=== PATIENT | male | born 1945 | race Caucasian/White ===

== ENCOUNTER 2017-07-11 15:11 | Emergency (ER) | payer MEDICARE ==
[2017-07-11] MEDS ORDERED: NS 0.9% 1000 ML* 1,000 ML IV ONE (15:49)
[2017-07-11] MEDS ORDERED: Meclizine TAB* 12.5 MG PO ONE (15:57)
[2017-07-11 16:17] LABS: ABS Basophils 0.1 10^3/ul (0-0.2); ABS Eosinophils 0.1 10^3/ul (0-0.6); ABS Lymphocytes 1.3 10^3/ul (1.0-4.8); ABS Monocytes 0.8 10^3/ul (0-0.8); ABS Neutrophils 5.4 10^3/ul (1.5-7.7); ABS Nucleated RBC 0.01 10^3/ul; Eosinophil % 1.2 % (0-6); Hematocrit 40 % (42-52); Hemoglobin 13.8 g/dl (14.0-18.0); Mean Corpuscular HGB Conc 34 g/dl (31-36); Mean Corpuscular Hemoglobin 29 pg (27-31); Mean Corpuscular Volume 84 fL (80-94); Mean Platelet Volume 9 um3 (7.4-10.4); Nucleated Red Blood Cells % 0.1; Platelet Count 245 10^3/ul (150-450); Red Blood Count 4.79 10^6/ul (4.0-5.4); Red Cell Distribution Width 15 % (10.5-15); White Blood Count 7.7 10^3/ul (3.5-10.8)
--- NOTE | 2017-07-11 16:28 | RAD ---
INDICATION: Dizziness. COMPARISON: Comparison is made with a prior chest x-ray study from December 18, 2011. TECHNIQUE: AP and lateral views of the chest were obtained. FINDINGS: The heart is within normal limits in size. Mediastinal and hilar contours appear within normal limits. The lungs are underinflated. There is a small infiltrate at the right lung base suggestive of atelectasis. No pleural effusion is seen. IMPRESSION: LOW LUNG VOLUMES, SMALL RIGHT BASILAR INFILTRATE SUGGESTIVE OF ATELECTASIS.
--- NOTE | 2017-07-11 16:36 | RAD ---
INDICATION: Dizziness. COMPARISON: There are no prior studies available for comparison. TECHNIQUE: Contiguous axial sections of the brain were obtained from the skull base to the vertex without contrast. FINDINGS: The ventricles, cisterns and sulci are enlarged consistent with diffuse atrophy. No significant focal abnormality or mass effect is seen. There is no evidence for hemorrhage. There is mild mucosal thickening within the right maxillary sinus. The visualized portion of the paranasal sinuses and mastoid air cells otherwise appear clear. IMPRESSION: NO EVIDENCE FOR GROSS ACUTE INFARCT, MASS EFFECT OR HEMORRHAGE.
[2017-07-11 16:50] LABS: EGFR Non-African American 64.1 (>60)
[2017-07-11 18:25] VITALS: BP 147/73
--- NOTE | 2017-07-16 18:38 | ED ---
Apoorva Echols Alfonso, scribed for Preet Moon MD on 07/11/17 at 1555 . Dizziness - HPI Summary HPI Summary: This patient is a 72 year old M BIBA to [facility] accompanied by family with a chief complaint of intermittent room-spinning dizziness since earlier today. The patient rates the pain 0/10 in severity. Symptoms aggravated and alleviated by nothing. Patient reports insomnia, tiredness (3-4 months), weakness, nausea, constipation (chronic), and neck pain (chronic). Patient denies CP, palpitations , SOB, vomiting, diarrhea, blurred vision, headache, rhinorrhea, sore throat, and ear ache. - History Of Current Complaint Chief Complaint: EDGeneral Stated Complaint: DIZZINESS,NAUSEA Time Seen by Provider: 07/11/17 15:33 Hx Obtained From: Patient Onset/Duration: Still Present Timing: Intermittent Episode Lasting Character: Room Spinning Aggravating Factor(s): Nothing Alleviating Factor(s): Nothing Associated Signs And Symptoms: Positive: Other: - insomnia, tiredness (3-4 months), weakness, nausea, constipation (chronic), and neck pain (chronic). Patient denies CP, palpitations, SOB, vomiting, diarrhea, blurred vision, headache, rhinorrhea, sore throat, and ear ache. - Allergies/Home Medications Allergies/Adverse Reactions: Allergies Allergy/AdvReac Type Severity Reaction Status Date / Time Aspirin Allergy ACTIVATES Verified 06/04/16 14:42 ACID REFLUX PMH/Surg Hx/FS Hx/Imm Hx GI History: Reports: Hx Gastroesophageal Reflux Disease - CONTROL WITH MEDS Sensory History: Reports: Hx Cataracts - BILATERAL, Hx Contacts or Glasses - GLASSES Denies: Hx Hearing Aid Opthamlomology History: Reports: Hx Cataracts - BILATERAL, Hx Contacts or Glasses - GLASSES EENT History: Denies: Hx Deafness Psychiatric History: Reports: Hx Anxiety - CONTROL WITH MEDS - Surgical History Surgery Procedure, Year, and Place: AGE 2 or 3 RIGHT EYE SURGERY FOR CROSS-EYED, . S OR LEFT SALIVA GLAND REMOVED, [facility] 02/2008 LEFT CATARACT EXTRACTION WITH IOL IMPLANT, [facility] [place] 04/2008 LAPAROSCOPIC CHOLECYSTECTOMY, [facility] [place]. 2008 ERCP / ANESTHESIA, [facility] [place]. 2009 ERCP, [facility] [place] Hx Anesthesia Reactions: No Infectious Disease History: No Infectious Disease History: Denies: Traveled Outside the [place] in Last 30 Days - Family History Known Family History: Positive: Cardiac Disease - [place], Other - Lung cancer - Social History Alcohol Use: Rare Alcohol Amount: 2 X A YEAR Hx Substance Use: No Substance Use Type: Reports: None Hx Tobacco Use: Yes Smoking Status (MU): Former Smoker Review of Systems Negative: Fever Negative: Blurred Vision Negative: Sore Throat, Ear Ache, Nasal Discharge Negative: Palpitations, Chest Pain Negative: Shortness Of Breath Positive: Nausea, Other - constipation. Negative: Vomiting, Diarrhea Positive: Other - neck pain (chronic) Neurological: Other - Dizziness, insomnia, tiredness (3-4 months), weakness Negative: Headache All Other Systems Reviewed And Are Negative: Yes Physical Exam - Summary Physical Exam Summary: VITAL SIGNS: Reviewed. GENERAL: Patient is a well-developed and nourished male who is lying comfortable in the stretcher. Patient is not in any acute respiratory distress. HEAD AND FACE: No signs of trauma. No ecchymosis, hematomas or skull depressions. No sinus tenderness. EYES: PERRLA, EOMI x 2, No injected conjunctiva, no nystagmus. EARS: Hearing grossly intact. Ear canals and tympanic membranes are within normal limits. MOUTH: Oropharynx within normal limits. Dry oral mucosa. NECK: Supple, trachea is midline, no adenopathy, no JVD, no carotid bruit, no c- spine tenderness, neck with full ROM. CHEST: Symmetric, no tenderness at palpation LUNGS: Clear to auscultation bilaterally. No wheezing or crackles. CVS: Regular rate and rhythm, S1 and S2 present, no murmurs or gallops appreciated. ABDOMEN: Soft, non-tender. No signs of distention. No rebound no guarding, and no masses palpated. Bowel sounds are normal. EXTREMITIES: FROM in all major joints, no edema, no cyanosis or clubbing. NEURO: Alert and oriented x 3. No acute neurological deficits. Speech is normal and follows commands. SKIN: Dry and warm Triage Information Reviewed: Yes Vital Signs On Initial Exam: Initial Vitals Temp Pulse Resp BP Pulse Ox 97.4 F 55 22 119/73 100 07/11/17 15:29 07/11/17 15:29 07/11/17 15:29 07/11/17 15:29 07/11/17 15:29 Vital Signs Reviewed: Yes - Melissa Coma Scale Best Eye Response: 4 - Spontaneous Best Motor Response: 6 - Obeys Commands Best Verbal Response: 5 - Oriented Coma Scale Total: 15 Diagnostics - Vital Signs Vital Signs Temp Pulse Resp BP Pulse Ox 07/11/17 15:30 15 119/73 07/11/17 15:29 97.4 F 55 21 119/73 100 - Laboratory Result Diagrams: 07/11/17 16:03 07/11/17 16:03 Lab Statement: Any lab studies that have been ordered have been reviewed, and results considered in the medical decision making process. - Radiology CXR Radiology Interpretation Completed By: Radiologist - LOW LUNG VOLUMES, SMALL RIGHT BASILAR INFILTRATE. ED physician has reviewed this radiology report and agrees. - CT Brain CT Interpretation Completed By: Radiologist - NO EVIDENCE FOR GROSS ACUTE INFARCT, MASS EFFECT OR HEMORRHAGE. ED physician has reviewed this radiology report and agrees. - EKG 1558 Cardiac Rate: Bradycardia EKG Rhythm: Sinus Bradycardia - 54 BPM EKG Interpretation: RBBB EKG Comparison: No Significant Change - 12/18/11 Re-Evaluation - Re-Evaluation First Eval Re-Evaluation Time: 17:55 Change: Improved Comment: Patient ambulated in the ED well and without any dizziness. The patient reports feeling much better. Dizzy Course/Dx - Course Assessment/Plan: This patient is a 72 year old M BIBA to [facility] accompanied by family with a chief complaint of intermittent room-spinning dizziness since earlier today. The patient rates the pain 0/10 in severity. Symptoms aggravated and alleviated by nothing. Patient reports insomnia, tiredness (3-4 months), weakness, nausea, constipation (chronic), and neck pain (chronic). Patient denies CP, palpitations, SOB, vomiting, diarrhea, blurred vision, headache, rhinorrhea, sore throat, and ear ache. An EKG reveals Sinus Bradycardia at 54 BPM and RBBB. CXR reveals, per radiologist, LOW LUNG VOLUMES, SMALL RIGHT BASILAR INFILTRATE. ED physician has reviewed this radiology report and agrees. CT Brain reveals, per radiologist, NO EVIDENCE FOR GROSS ACUTE INFARCT, MASS EFFECT OR HEMORRHAGE. ED physician has reviewed this radiology report and agrees. Test results with no significant abnormalities. In the ED course the patient was given IV fluids, Antivert for the dizziness, and the patient feels better. The patient ambulated with a good stead walk without any aid. Therefore , I believe the patient has vertigo. Patient will be discharged with prescription for Antivert and follow up from PCP. The patient is agreeable with this plan. The patient is hemodynamically stable, alert and oriented x3. - Diagnoses Provider Diagnoses: Dizziness Discharge - Discharge Plan Condition: Stable Disposition: HOME Prescriptions: Meclizine TAB* [Antivert 12.5 TAB*] 25 mg PO TID PRN #30 tab PRN Reason: Vertigo Patient Education Materials: Dizziness (ED) Referrals: Manuel Vee MD [Primary Care Provider] - 3 Days Additional Instructions: RETURN TO THE EMERGENCY DEPARTMENT FOR CHANGING OR WORSENING SYMPTOMS. The documentation as recorded by the Apoorva pinedo Alfonso accurately reflects the service I personally performed and the decisions made by me, Preet Moon MD.
== END 2017-07-11 18:23 | disposition home or self-care (01) ==
LOC: ED 15:11
DX: R42 Dizziness and giddiness (principal); I45.10 Unspecified right bundle-branch block; Z87.891 Personal history of nicotine dependence; F41.9 Anxiety disorder, unspecified; K21.9 Gastro-esophageal reflux disease without esophagitis; R00.1 Bradycardia, unspecified; R91.8 Other nonspecific abnormal finding of lung field
CPT/HCPCS: 36415; 70450; 71020; 80053; 80320; 82550; 83735; 83880; 84443; 84484; 85025; 86140; 93005; 96360; 99283; A9270-GY; G0480

== ENCOUNTER 2018-06-04 21:33 | Emergency (ER) | payer MEDICARE ==
[2018-06-04 22:15] LABS: ABS Basophils 0.1 10^3/ul (0-0.2); ABS Eosinophils 0.2 10^3/ul (0-0.6); ABS Monocytes 0.7 10^3/ul (0-0.8); ABS Neutrophils 4.3 10^3/ul (1.5-7.7); ABS Nucleated RBC 0 10^3/ul; Hematocrit 43 % (42-52); Hemoglobin 14.9 g/dl (14.0-18.0); Lymphocyte % 27.3 % (25-47); Mean Corpuscular HGB Conc 35 g/dl (31-36); Mean Corpuscular Hemoglobin 30 pg (27-31); Mean Corpuscular Volume 85 fL (80-94); Mean Platelet Volume 8.5 um3 (7.4-10.4); Nucleated Red Blood Cells % 0.4; Platelet Count 295 10^3/ul (150-450); Red Blood Count 5.01 10^6/ul (4.00-5.40); Red Cell Distribution Width 15 % (10.5-15); White Blood Count 7.3 10^3/ul (3.5-10.8)
--- NOTE | 2018-06-04 22:18 | ED ---
Upper Extremity Pain - HPI Summary HPI Summary: 73-year-old male presents with a pulsatile mass to right antecubital region. He states that the area has been expanding over the past 24 hours. he tried some eczema cream on it. He states that does not cause him any pain. He noticed some redness of area. No chest pain or shortness breath. Denies any medical history. No numbness or tingling. No weakness. He states he'll still able to grab things. Is right-handed. - History of Current Complaint Chief Complaint: EDExtremityUpper Stated Complaint: RT INSIDE ELBOW INJURY Time Seen by Provider: 06/04/18 21:51 - Allergies/Home Medications Allergies/Adverse Reactions: Allergies Allergy/AdvReac Type Severity Reaction Status Date / Time aspirin Allergy Unknown Verified 06/04/18 22:15 Reaction Details PMH/Surg Hx/FS Hx/Imm Hx Endocrine/Hematology History: Denies: Hx Anticoagulant Therapy, Hx Diabetes Cardiovascular History: Denies: Hx Myocardial Infarction GI History: Reports: Hx Gastroesophageal Reflux Disease - CONTROL WITH MEDS Sensory History: Reports: Hx Cataracts - BILATERAL, Hx Contacts or Glasses - GLASSES Denies: Hx Deafness, Hx Hearing Aid Opthamlomology History: Reports: Hx Cataracts - BILATERAL, Hx Contacts or Glasses - GLASSES Psychiatric History: Reports: Hx Anxiety - CONTROL WITH MEDS - Surgical History Surgery Procedure, Year, and Place: AGE 2 or 3 RIGHT EYE SURGERY FOR CROSS-EYED, . S OR LEFT SALIVA GLAND REMOVED, [facility]. 02/2008 LEFT CATARACT [place]TRA[place] [facility] [place] LAPAROSCOPIC [place] [facility] [place] [facility] [place] [facility] [place]x Anesthesia Reactions: No Infectious Disease History: No Infectious Disease History: Denies: Traveled Outside the [place] in Last 30 Days - Family History Known Family History: Positive: Cardiac Disease - [place], Other - Lung cancer - Social History Alcohol Use: Rare Alcohol Amount: 2 X A YEAR Hx Substance Use: No Substance Use Type: Reports: None Hx Tobacco Use: Yes Smoking Status (MU): Former Smoker Review of Systems Negative: Fever Negative: Chest Pain Negative: Shortness Of Breath Positive: Other - mass in right arm All Other Systems Reviewed And Are Negative: Yes Physical Exam Triage Information Reviewed: Yes Vital Signs On Initial Exam: Initial Vitals Temp Pulse Resp BP Pulse Ox 98.5 F 59 18 185/79 98 10/20/18 21:37 06/04/18 21:37 06/04/18 21:37 06/04/18 21:37 06/04/18 21:37 Vital Signs Reviewed: Yes Appearance: Positive: Well-Appearing Skin: Positive: Warm, Dry Head/Face: Positive: Normal Head/Face Inspection Eyes: Positive: Normal, Conjunctiva Clear ENT: Positive: Pharynx normal Respiratory/Lung Sounds: Positive: Clear to Auscultation, Breath Sounds Present Cardiovascular: Positive: Normal, RRR Musculoskeletal: Positive: Other - pulsatile mass to right arm, good pulses, good software implementation project manager strength, capillary refill<2secs Neurological: Positive: Normal Psychiatric: Positive: Normal Diagnostics - Vital Signs Vital Signs Temp Pulse Resp BP Pulse Ox 06/04/18 21:37 98.5 F 59 18 98 - Laboratory Lab Results: Lab Results 06/04/18 Range/Units 22:01 WBC 7.3 (3.5-10.8) 10^3/ul RBC 5.01 (4.00-5.40) 10^6/ul Hgb 14.9 (14.0-18.0) g/dl Hct 43 (42-52) % MCV 85 (80-94) fL MCH 30 (27-31) pg MCHC 35 (31-36) g/dl RDW 15 (10.5-15) % Plt Count 295 (150-450) 10^3/ul MPV 8.5 (7.4-10.4) um3 Neut % (Auto) 58.9 (38-83) % Lymph % (Auto) 27.3 (25-47) % Will % (Auto) 9.5 H (0-7) % Eos % (Auto) 3.0 (0-6) % Baso % (Auto) 1.3 (0-2) % Absolute Neuts (auto) 4.3 (1.5-7.7) 10^3/ul Absolute Lymphs (auto) 2.0 (1.0-4.8) 10^3/ul Absolute Monos (auto) 0.7 (0-0.8) 10^3/ul Absolute Eos (auto) 0.2 (0-0.6) 10^3/ul Absolute Basos (auto) 0.1 (0-0.2) 10^3/ul Absolute Nucleated RBC 0 10^3/ul Nucleated RBC % 0.4 Result Diagrams: 06/04/18 22:01 06/04/18 22:01 Lab Statement: Any lab studies that have been ordered have been reviewed, and results considered in the medical decision making process. - Ultrasound No standard instances Ultrasound Interpretation: No Acute Changes Ultrasound Interpretation Completed By: Radiologist Course/Dx - Course Course Of Treatment: 73-year-old male presents with a pulsatile mass to right antecubital region. He states that the area has been expanding over the past 24 hours. he tried some eczema cream on it. He states that does not cause him any pain. He noticed some redness of area. No chest pain or shortness breath. Denies any medical history. No numbness or tingling. No weakness. He states he'll still able to grab things. Is right-handed. On exam his pulse mass on right medial antecubital region. Some erythema that is not warm to the touch. Good software implementation project manager strength. Neurovascular intact. wbc normal. u/s normal. CTA normal. discussed could be vasculitis. will have follow up with vascular surgeon. discussed case with dr Madrigal. patient understand and agrees with plan. - Diagnoses Differential Diagnosis/HQI/PQRI: Positive: Other - dvt, aneursym, abscess Provider Diagnoses: Localized swelling, mass and lump, right upper limb Discharge - Sign-Out/Discharge Documenting (check all that apply): Patient Departure - Discharge Plan Condition: Good Disposition: HOME Referrals: Manuel Vee MD [Primary Care Provider] - Shahbaz Chowdhury MD [Medical Doctor] - Additional Instructions: follow up with vascular surgeon Return to ED if hand becomes cold, numbness and tingling or any new or worsening symptoms - Billing Disposition and Condition Condition: GOOD Disposition: Home
[2018-06-04 22:24] LABS: INR 0.97 (0.77-1.02)
[2018-06-04 22:32] LABS: EGFR Non-African American 60.8 (>60)
[2018-06-04] MEDS ORDERED: Iohexol 350* (CONTRAST) 500 ML MDV IV ONE (22:43)
--- NOTE | 2018-06-04 23:16 | RAD ---
EXAM: US Right Non-Vascular Joint Or Other Extremity Structure Ltd Upper Extremity CLINICAL HISTORY: 73 years old, male; Signs and symptoms; Mass or lump; Elbow; Right; Additional info: Right arm mass TECHNIQUE: Real-time ultrasound of the right non-vascular joint or other extremity structure ltd upper extremity with image documentation. COMPARISON: No relevant prior studies available. FINDINGS: No demonstrated mass or abnormal fluid collection in the right antecubital fossa. Visualized portion of right brachial artery unremarkable. IMPRESSION: No demonstrated mass or abnormal fluid collection in the right antecubital fossa. Visualized portion of right brachial artery unremarkable. To contact [facility] with a general question: Operations Center - [phone] For direct physician to physician contact: Physician Hotline - [phone] [facility] ([facility] Facility ID #[id number])
--- NOTE | 2018-06-04 23:48 | RAD ---
EXAM: CTA Right Upper Extremity With Intravenous Contrast EXAM DATE/TIME: 06/04/2018 11:07 PM CLINICAL HISTORY: 73 years old, male; Signs and symptoms; Swelling; Elbow; Right; Additional info: Right brachial artery enlarged TECHNIQUE: Axial CTA of the Right upper extremity with intravenous contrast material, including non-contrast images if performed. All CT scans at this facility use at least one of these dose optimization techniques: automated exposure control; mA and/or kV adjustment per patient size (includes targeted exams where dose is matched to clinical indication); or iterative reconstruction. Coronal reformatted images were created and reviewed. MIP reconstructed images were created and reviewed. CONTRAST: 100 ml of OMNIPAQUE 350 administered intravenously. COMPARISON: SFTIS EXRT US SOFT TISSUE LIMITED EXT-RT 06/04/2018 10:08 PM FINDINGS: Right brachial artery: The distal right brachial artery is normal. Right radial artery: The proximal right radial artery is normal. Right ulnar artery: The proximal right ulnar artery is normal. Other arteries: The proximal right deep interosseous artery is normal. Soft tissues: Unremarkable. Other findings: No aneurysm is seen. IMPRESSION: Normal arterial vasculature around the elbow. No aneurysm. To contact [employer] with a general question: Operations Center - [phone] For direct physician to physician contact: Physician Hotline - [phone] [facility] ([facility] Facility ID #[id number])
[2018-06-05 00:21] VITALS: BP 164/81
== END 2018-06-05 00:21 | disposition home or self-care (01) ==
LOC: ED 21:33
DX: R60.0 Localized edema (principal); R22.31 Localized swelling, mass and lump, right upper limb; K21.9 Gastro-esophageal reflux disease without esophagitis; Z87.891 Personal history of nicotine dependence
CPT/HCPCS: 36415; 80053; 83605; 85025; 85610; 85652; 85730; 86140; 99283; Q9967